=== PATIENT | female | born 1945 | race Caucasian/White ===

== ENCOUNTER → 2018-01-26 | Outpatient (CLI) | payer MEDICARE, OTHER ==
--- NOTE | 2018-01-26 16:36 | PCVCIMAG ---
APPROVED REPORT Study performed: 01/26/2018 13:05:07 Exam: Stress Echocardiogram Indication: Bradycardia Patient Location: Echo lab Stress Nurse: Clare Ray RN Status: routine Ht: 5 ft 3 in HR: 45 bpm BP: 150/80 mmHg Rhythm: Bradycardia Medical History Medical History: Smoking, Tremors Procedure The patient underwent an Exercise Stress Test using the Donald Protocol. Blood pressure, heart rate, and EKG were monitored. An Echocardiogram was performed by recreation technician in four stages in quad fashion. At peak stress, four selected images were obtained and placed side by side with resting images for comparison. Stress Test Details Stress Test: Exercise stress testing was performed using a Donald protocol. HR Resting HR: 45 bpmMax Heart Rate (APMHR): 150 bpm Max HR Achieved: 126 bpmTarget HR (85% APMHR): 127 bpm % of APMHR: 84 Recovery HR: 63 bpm HR response to stress: Blunted HR response to stress BP Resting BP: 150/80 mmHg Max BP: 154/82 mmHg Recovery BP: 124/78 mmHg BP response to stress: Normal blood pressure response to stress. ECG Resting ECG: Sinus Bradycardia with non-specific ST segment abnormality Stress ECG: Sinus Rhythm ST Change: Horizontal ST depression Maximum ST Deviation: 0.5 mm Arrhythmia: None Recovery ECG: Sinus Rhythm Recovery ST Change: Horizontal ST depression Recovery ST Deviation: 1 mm Recovery Arrhythmia: None Clinical Reason for Termination: Maximal effort Exercise duration: 8 min 44 sec Highest Stage Achieved: Stage 3: 3.4 mph at 14% grade. Exercise capacity: 10.10 METs Overall Exercise Capacity for Age: Normal Angina Score: None Stress ECG Conclusion Clinical: Non-ischemic ECG: Ischemic An Treadmill Score is 5.5 which is Low risk. Pre-Stress Echo The resting Echocardiogram showed normal left ventricular contractility with an estimated Ejection Fraction of about 55-60%. Normal wall motion in all segments on baseline images. Post-Stress Echo The stress Echocardiogram showed normal left ventricular contractility with an estimated Ejection Fraction of about 60-65%. Normal augmentation of wall motion in all segments on post stress images. Clinical No clinical evidence for ischemia. Conclusion Clinical Response: Non-ischemic Exercise Capacity: Average Stress ECG Response: Ischemic Stress Echo Images: Non-ischemic The left ventricle is normal in size and wall thickness in both the rest and stress images. Normal stress echocardiogram with near maximal exercise stress. Ischemic electrocardiographic changes may represent false positive electrocardiographic response. Other Information Study Quality: Good <Conclusion> The left ventricle is normal in size and wall thickness in both the rest and stress images. Normal stress echocardiogram with near maximal exercise stress. Ischemic electrocardiographic changes may represent false positive electrocardiographic response.
== END | disposition home or self-care (01) ==
LOC: PCVCIMAG 12:36
PROVIDERS: ATTEND Internal Medicine Cardiovascular Disease
DX: R00.1 Bradycardia, unspecified (principal); E11.9 Type 2 diabetes mellitus without complications; R06.09 Other forms of dyspnea; G25.0 Essential tremor; E78.5 Hyperlipidemia, unspecified; F17.200 Nicotine dependence, unspecified, uncomplicated
CPT/HCPCS: 93325; 93351